=== PATIENT | female | born 1940 | race Caucasian/White ===

== ENCOUNTER 2023-04-13 16:12 | Emergency (ER) | payer MEDICARE, SELFPAY ==
--- NOTE | ~2023-04-13 | CT_ITS ---
EXAMINATION: CT ABDOMEN AND PELVIS WITH CONTRAST CLINICAL INFORMATION: Epigastric pain. COMPARISON: None available. TECHNIQUE: Multidetector volumetric images were obtained from the superior aspect of the liver through the pubic symphysis following administration 85 mL of Omnipaque 350 intravenous contrast. Sagittal and coronal reformatted images were obtained on the technologist's workstation. Oral contrast: No This CT examination was performed using dose optimization techniques as appropriate, variously including the following: *Automated exposure control *Adjustment of mA and/or kV according to patient size (this includes techniques or standardized protocols for targeted exams where dose is matched to indication/reason for exam; i.e. extremities or head) *Use of iterative reconstruction technique DLP: 541 mGy-cm FINDINGS: LUNG BASES: No focal consolidation or pleural effusion. LIVER, GALLBLADDER, AND BILIARY TREE: The liver is normal in size, shape, and attenuation. Too small to characterize hypodensity in the hepatic dome, statistically favoring to represent a cyst (3:4). Cholecystectomy. Dilated common bile duct measuring up to 1 cm in diameter that is most likely related with post cholecystectomy state and patient's age. No significant intrahepatic biliary ductal dilatation. PANCREAS: Unremarkable. SPLEEN: Unremarkable. ADRENAL GLANDS: Unremarkable. KIDNEYS AND URETERS: Symmetric nephrograms. No hydronephrosis. No perinephric fat stranding. Evaluation of renal calculi is limited due to small amount of intravenous contrast opacifying the renal calyces/collecting systems. There is 4.4 cm Bosniak 1 cortical cyst in the left upper kidney and multiple bilateral peripelvic renal cysts, for which no imaging follow-up is recommended. Additional too small to characterize bilateral cortical hypodensities, also statistically favoring to represent simple cysts for which no imaging follow-up is recommended. BLADDER: Unremarkable. GASTROINTESTINAL TRACT: Dilated hyperemic loops of small bowel in the mid to lower abdomen measuring up to 3 cm in diameter with air-fluid levels and associated mesentery vasculature engorgement, gradually transitioning into a lesser luminal diameter at the level of the distal ileum, for example as identified on axial image 58 series 3. Normal appearance of the terminal ileum and appendix. Fluid distention of the cecum and ascending colon with mild hyperemia and minimal wall thickening. Also fluid distention of the rectum. Colonic diverticulosis. No significant pericolonic fat stranding. No pneumatosis or free air. No organized extraluminal collections. ABDOMINAL WALL: No significant hernia is appreciated. LYMPH NODES: No lymphadenopathy. VASCULAR: Severe atherosclerotic disease. Normal caliber of the abdominal aorta. PELVIC VISCERA: Hysterectomy. OSSEOUS STRUCTURES: Moderate to severe degenerative changes of the spine. No acute or aggressive appearing osseous findings. Partially imaged left femoral hardware. CT/CT abdomen pelvis w IV con IMPRESSION: Prominent loops of small bowel in the mid to lower abdomen with associated hyperemia and mesenteric vasculature engorgement/haziness that could represent an early partial small bowel obstruction. However, there is also fluid distention of the cecum, ascending colon and rectum with mild hyperemia raising the possibility of acute enteritis with diarrhea. Recommend clinical correlation.
[2023-04-13 17:23] VITALS: BP 181/78; PULSE 88; RESP 16; TEMP 36.6; O2SAT 93; BMI 30.3
--- NOTE | 2023-04-13 17:25 | ED_ITS ---
HPI - General Adult General Chief complaint: Abdominal Pain Stated complaint: abd pain Time Seen by Provider: 04/13/23 22:40 Source: patient and family Mode of arrival: ambulatory Limitations: no limitations History of Present Illness HPI narrative: Patient comes to the emergency room complaining of vomiting and diarrhea and epigastric pain starting today. Patient comes accompanied by her daughter. Yesterday patient was doing well. Patient denies any fever chills, no flank pain, no UTI symptoms. Patient complaining of a headache and photophobia. Related Data Previous Rx's Medication Instructions Recorded loperamide 2 mg capsule 2 mg PO Q6H PRN loose stool #14 04/14/23 caps Allergies Allergy/AdvReac Type Severity Reaction Status Date / Time No Known Allergies Allergy Verified 04/13/23 17:23 Review of Systems 2 Review of Systems: Constitutional : No Weight loss, No Fever, No Chills, No Night Sweats, No Fatigue, No Malaise ENT/Mouth : No Hearing loss, No Ear Pain, No Nasal Congestion, No Sinus Pain, No Hoarseness, No sore throat, No Rhinorrhea, No Swallowing Difficulty Eyes: No Eye Pain, No Swelling, No Redness, No Foreign Body, No Discharge, No Vision Changes Cardiovascular : No Chest Pain, No SOB, No Dyspnea on Exertion, No Orthopnea, No Edema, No Palpitations Respiratory : No Cough, No Sputum, No Wheezing, No Smoke Exposure, No Dyspnea Gastrointestinal : Complaining of nausea and vomiting, diarrhea, epigastric pain Genitourinary : no irregular bleeding, No Dysuria, No Urinary Frequency, No Hematuria, No Urinary Incontinence, No Urgency, No Flank Pain, No Urinary Flow Changes, No Hesitancy Musculoskeletal : No joint pain, No Myalgias, No Joint Swelling Skin : No Skin Lesions, No rash Neuro : No Weakness, No Numbness, No Paresthesias, No Loss of Consciousness, No Dizziness, complaining of Headache Psych : No Anxiety/Panic, No Depression, No SI/HI/AH/VH, No Social Issues, Heme/Lymph: No Bruising, No Bleeding,No Lymphadenopathy Endocrine : No Polyuria, No Polydipsia, No Temperature Intolerance [facility] Past Medical History Surgical History (Updated 04/13/23 @ 22:56 by Shu Nuñez MD) H/O: History of cholecystectomy Social History Social History Alcohol intake: never Smoked in Last 30 Days: No Use of substances other than those prescribed or required for medical reasons: No Advance Directives: No Advance Directives Information Provided: No Physical Exam ED Vital Signs: Vital Signs - 24 hr 04/13/23 17:23 04/13/23 22:23 Temperature 97.8 F 98.0 F Pulse Rate 88 84 Respiratory Rate 16 18 Blood Pressure 181/78 H 168/78 H Pulse Oximetry 93 97 Oxygen Delivery Method Room Air Room Air BMI result Body Mass Index 30.3 Const Other: Appearance: Alert. Oriented X3. No acute distress. Eyes: Pupils equal, round and reactive to light. Patient seems to have photophobia ENT: Pharynx normal. Neck: Normal inspection. Neck supple. No lymph nodes noted. No crepitus CVS: Normal heart rate and rhythm. Pulses normal. Normal S1 and S2 Respiratory: No respiratory distress. Breath sounds normal. No Wheezing. No rales Abdomen: Soft, abdominal discomfort in bilateral upper quadrants, no rebound, no guarding, No rigidity. No distention. Skin: Skin warm and dry. Normal skin color. Normal skin turgor. Extremities: No lower extremity edema. No Lacerations. No Rash Neuro: Oriented X 3. No motor deficit. No sensory deficit. Moving all extremities. No slurred speech. CN 2 through 12 grossly intact Psych: calm, cooperative, normal affect Course Course Course Narrative: This is a rapid medical exam: Additional HPI, ROS, PE not included below will be deferred to primary provider. Patient is an 82-year-old female with history of HTN, recent femoral fracture with surgical repair, diet controlled CM presenting to the ED with epigastric pain and diarrhea for one day. Had similar symptoms recently which resolved spontaneously. Denies fevers. Denies recent antibiotic use. Plan: viral swabs, labs, UA, EKG Medications Administered Discontinued Medications Generic Name Dose Route Start Last Admin Trade Name Freq PRN Reason Stop Dose Admin Sodium Chloride 1,000 mls @ 999 mls/hr 04/13/23 22:51 04/13/23 23:51 Ns IVCONT 04/13/23 23:51 999 mls/hr .Q1H1M ONE Administration Iohexol 85 ml 04/13/23 23:35 04/13/23 23:36 Iohexol 350 Mg/Ml 100 Ml Infus..Btl IV 04/13/23 23:36 85 ml ONCE ONE Administration Ketorolac Tromethamine 30 mg 04/13/23 23:01 04/13/23 23:50 Ketorolac Tromethamine 30 Mg/Ml Vial IVPUSH 04/13/23 23:02 30 mg ONCE ONE Administration Loperamide HCl 4 mg 04/13/23 22:51 04/13/23 23:49 Loperamide Hcl 2 Mg Capsule PO 04/13/23 22:52 4 mg ONCE ONE Administration Ondansetron HCl 4 mg 04/13/23 22:51 04/13/23 23:51 Ondansetron Hcl 4 Mg/2 Ml Vial IVPUSH 04/13/23 22:52 4 mg ONCE ONE Administration Medical Decision Making Medical Decision Making [facility] Narrative: -my interpretation of labs, white blood cell count slightly elevated 11.7, chemistry unremarkable, LFTs within normal limits, urinalysis has small amount of blood, negative for UTI, patient has no UTIs symptoms -patient receiving IV fluids, Zofran, loperamide and also Toradol for the headache. -my interpretation of CT scan of the abdomen : No obvious abnormalities, no SBO -radiology report shows prominent loops, possible SpO2. However, patient has no SBO symptoms. Patient actually has diarrhea. After the IV fluids and treatment mentioned above, patient states that she feels much better, has no abdominal pain whatsoever. -her chest pain to keep drinking fluids -likely viral gastroenteritis, this time, antibiotics not indicated Differential Diagnosis Differential Diagnoses: The differential diagnosis associated with the presentation includes (Viral gastroenteritis, SBO, viral syndrome) Admission/Observation Consideration of admission/observation: Escalation of care including admission/observation considered (Given patient's symptoms and presentation, admission was considered on arrival) Lab Data [facility] Lab Attestation statement: I reviewed the patient's lab results. 04/13/23 18:06 04/13/23 18:06 Labs: Lab Results 04/13/23 04/13/23 Range/Units 18:06 21:37 WBC 11.7 H (4.8-10.8) X10*3/uL RBC 4.86 (4.20-5.50) X10*6/uL Hgb 15.5 (12.0-16.0) g/dl Hct 46.7 (37.0-47.0) % MCV 96.1 (80.0-98.0) fL MCH 31.9 (27.0-33.0) pg MCHC 33.2 (31.0-35.0) g/dl RDW 13.1 (11.0-16.0) % Plt Count 277 (160-400) X10*3/uL MPV 8.5 L (9.4-12.3) fL Immature Gran % (Auto) 0.3 (0.0-0.4) % Neut % (Auto) 91.2 H (45-73) % Lymph % (Auto) 3.9 L (20-40) % [place] % (Auto) 3.5 (2-11) % Eos % (Auto) 0.9 (0-4) % Baso % (Auto) 0.2 (0-2) % Lymph # (Auto) 0.5 L (1.2-4.9) X10*3/uL [place] # (Auto) 0.4 (0.1-1.2) X10*3/uL Eos # (Auto) 0.1 (0.0-0.4) X10*3/uL Baso # (Auto) 0.0 (0.0-0.2) X10*3/uL Abs Immat Gran (auto) 0.04 H (0.00-0.03) X10*3/uL Absolute Neuts (auto) 10.7 H (2.0-8.3) x10*3/uL Absolute Nucleated RBC 0.000 (0.0-0.012) X10*3/uL Nucleated RBC % (auto) 0.0 (0.0-0.2) /100WBC Smear Tech's Comments VERIFIED Sodium 141 (135-145) mmol/L Potassium 4.7 (3.3-5.1) mmol/L Chloride 106 (96-108) mmol/L Carbon Dioxide 27 (22-29) mmol/L Anion Gap 13 (12-20) BUN 13 (9-16) mg/dL Creatinine 0.76 (0.5-1.4) mg/dL Estim Creat Clear Calc 49.5 Estimated GFR > 60 Random Glucose 149 H (60-115) mg/dL Calcium 9.9 (8.4-10.2) mg/dL Total Bilirubin 0.4 (0.0-1.0) mg/dL AST 16 (5-31) U/L ALT 8 (0-31) U/L Alkaline Phosphatase 105 (39-117) U/L Troponin I High Sens 3.3 (<3.5-17.0) ng/L Total Protein 7.6 (6.5-8.0) g/dL Albumin 4.1 (3.5-5.0) g/dL Urine Color Dark Yellow Urine Appearance Cloudy Urine pH 5.5 (5.0-9.0) Ur Specific [place] >= 1.030 H (1.005-1.025) Urine Protein 30 (1+) H (Neg-Trace) mg/dL Urine Glucose (UA) Negative (Negative) mg/dL Urine Ketones Negative (Negative) mg/dL Urine Blood Trace H (Negative) Urine Nitrite Negative (Negative) Ur Leukocyte Esterase Negative (Negative) Urine RBC 6-10 H (0-2) /HPF Urine WBC 0-5 (0-5) /HPF Ur Squamous Epith Cells 6-10 (0-2) /HPF Urine Bacteria Trace (None Seen) Hyaline Casts 3-5 (0-2) /LPF COVID-19 (KATERINE) Negative (Negative) COVID-19 Clin Com See Note Influenza Type A (JUAN ANTONIO) Negative (Negative) Influenza Type B (JUAN ANTONIO) Negative (Negative) Influenza A & B Note See Note Independent Interpretation I performed an independent interpretation of an: CT Scan Radiology Impression Discussion of test interpretation with radiology: I have reviewed the radiologist's reading. Radiologist Impression: FINDINGS: LUNG BASES: No focal consolidation or pleural effusion. LIVER, GALLBLADDER, AND BILIARY TREE: The liver is normal in size, shape, and attenuation. Too small to characterize hypodensity in the hepatic dome, statistically favoring to represent a cyst (3:4). Cholecystectomy. Dilated common bile duct measuring up to 1 cm in diameter that is most likely related with post cholecystectomy state and patient's age. No significant intrahepatic biliary ductal dilatation. PANCREAS: Unremarkable. SPLEEN: Unremarkable. ADRENAL GLANDS: Unremarkable. KIDNEYS AND URETERS: Symmetric nephrograms. No hydronephrosis. No perinephric fat stranding. Evaluation of renal calculi is limited due to small amount of intravenous contrast opacifying the renal calyces/collecting systems. There is 4.4 cm Bosniak 1 cortical cyst in the left upper kidney and multiple bilateral peripelvic renal cysts, for which no imaging follow-up is recommended. Additional too small to characterize bilateral cortical hypodensities, also statistically favoring to represent simple cysts for which no imaging follow-up is recommended. BLADDER: Unremarkable. GASTROINTESTINAL TRACT: Dilated hyperemic loops of small bowel in the mid to lower abdomen measuring up to 3 cm in diameter with air-fluid levels and associated mesentery vasculature engorgement, gradually transitioning into a lesser luminal diameter at the level of the distal ileum, for example as identified on axial image 58 series 3. Normal appearance of the terminal ileum and appendix. Fluid distention of the cecum and ascending colon with mild hyperemia and minimal wall thickening. Also fluid distention of the rectum. Colonic diverticulosis. No significant pericolonic fat stranding. No pneumatosis or free air. No organized extraluminal collections. ABDOMINAL WALL: No significant hernia is appreciated. LYMPH NODES: No lymphadenopathy. VASCULAR: Severe atherosclerotic disease. Normal caliber of the abdominal aorta. PELVIC VISCERA: Hysterectomy. OSSEOUS STRUCTURES: Moderate to severe degenerative changes of the spine. No acute or aggressive appearing osseous findings. Partially imaged left femoral hardware. CT/CT abdomen pelvis w IV con IMPRESSION: Prominent loops of small bowel in the mid to lower abdomen with associated hyperemia and mesenteric vasculature engorgement/haziness that could represent an early partial small bowel obstruction. However, there is also fluid distention of the cecum, ascending colon and rectum with mild hyperemia raising the possibility of acute enteritis with diarrhea. Recommend clinical correlation. Critical Care Time Critical Care Time Critical Care Time: Yes Total Critical Care Time: 60 Attestation: I have personally provided critical care time. Time includes review of lab data, radiology results, discussion with consultants, and monitoring for potential decompensation. Intervention performed as documented. Discharge Plan Discharge Clinical Impression: Gastroenteritis Patient Disposition: Home, Self-Care Instructions: Gastroenteritis (ED) Additional Instructions: trate de comer shabbir y april muchos liquidos. Si no quiere comer por un lashell, esta shabbir, bettie muchos liquidos son necesarios. No deje pasar mucho tiempo sin comer para que no se debilite. tome liquidos con electrolitos rosalva gatorade, powerade, pedialite. Please follow-up with your primary care physician tomorrow. If you have any worsening or new symptoms, please return to the emergency room or call 911 Prescriptions: New loperamide 2 mg capsule 2 mg PO Q6H PRN (Reason: loose stool) Qty: 14 0RF
--- NOTE | 2023-04-13 17:28 | ECG_ITS ---
Test Reason : epigastric pain Blood Pressure : / mmHG Vent. Rate : 079 BPM Atrial Rate : 079 BPM P-R Int : 146 ms QRS Dur : 078 ms QT Int : 362 ms P-R-T Axes : 037 -23 002 degrees QTc Int : 415 ms Normal sinus rhythm Normal ECG No previous ECGs available Referred By: My Aguilar Electronically Signed By:KAROLYN RUSH
[2023-04-13 18:12] LABS: Basophils Percent Auto 0.2 % (0-2); Eosinophils Absolute Auto 0.1 X10*3/uL (0.0-0.4); Eosinophils Percent Auto 0.9 % (0-4); Hematocrit 46.7 % (37.0-47.0); Hemoglobin 15.5 g/dl (12.0-16.0); Imm Gran Abs Auto 0.04 X10*3/uL (0.00-0.03); Imm Gran Pct Auto 0.3 % (0.0-0.4); Lymphocytes Absolute Auto 0.5 X10*3/uL (1.2-4.9); Lymphocytes Percent Auto 3.9 % (20-40); MANUAL DIFF FLAG SCAN; Mean Corpuscular HGB Conc 33.2 g/dl (31.0-35.0); Mean Corpuscular Hemoglobin 31.9 pg (27.0-33.0); Mean Corpuscular Volume 96.1 fL (80.0-98.0); Mean Platelet Volume 8.5 fL (9.4-12.3); Monocytes Absolute Auto 0.4 X10*3/uL (0.1-1.2); Monocytes Percent Auto 3.5 % (2-11); Neutrophils Absolute Auto 10.7 x10*3/uL (2.0-8.3); Neutrophils Percent Auto 91.2 % (45-73); Platelet Count 277 X10*3/uL (160-400); Red Blood Count 4.86 X10*6/uL (4.20-5.50); Red Cell Distribution Width 13.1 % (11.0-16.0); SCAN SMEAR FLAG 1; White Blood Count 11.7 X10*3/uL (4.8-10.8)
[2023-04-13 18:25] LABS: Alanine Aminotransferase 8 U/L (0-31); Albumin Level 4.1 g/dL (3.5-5.0); Alkaline Phosphatase 105 U/L (39-117); Anion Gap 13 (12-20); Aspartate Amino Transferase 16 U/L (5-31); Bilirubin Total 0.4 mg/dL (0.0-1.0); Blood Urea Nitrogen 13 mg/dL (9-16); Calcium 9.9 mg/dL (8.4-10.2); Carbon Dioxide 27 mmol/L (22-29); Chloride 106 mmol/L (96-108); Creatinine Clr Calc Pharmacy 49.5; Estimated Glomerular Filt Rate > 60; Glucose Random 149 mg/dL (60-115); Potassium 4.7 mmol/L (3.3-5.1); Sodium 141 mmol/L (135-145); Total Protein 7.6 g/dL (6.5-8.0)
[2023-04-13 18:32] LABS: Troponin-I High Sensitivity 3.3 ng/L (<3.5-17.0)
[2023-04-13 18:41] LABS: COVID-19 Test Negative (Negative); IDNOW Serial# 08D9AD1C; IDNOW Serial# BCCEAD1C; Influenza A Negative (Negative); Influenza B2 Negative (Negative)
[2023-04-13 18:48] LABS: SLIDE REVIEW VERIFIED
[2023-04-13 21:49] LABS: Appearance Urine Cloudy; Color Urine Dark Yellow; Glucose Urine UA Negative (Negative); Leukocyte Esterase Urine Negative (Negative); Nitrite Urine Negative (Negative); PH 5.5 (5.0-9.0); Specific Gravity - Urine >= 1.030 (1.005-1.025); UMIC TRIGGER UACC YES; Urine Blood Trace (Negative); Urine Ketones Negative (Negative); Urine Protein 30 (1+) mg/dL (Neg-Trace)
[2023-04-13 21:56] LABS: Bacteria Urine Trace (None Seen); WBC Urine 0-5 /HPF (0-5)
[2023-04-13 22:23] VITALS: BP 168/78; PULSE 84; RESP 18; TEMP 36.7; O2SAT 97
--- NOTE | 2023-04-13 22:38 | PC.NURSE ---
Pt c/o abdominal pain multiple diarrhea episodes and vomiting bile per reports from daughter who also reports she had the same symptoms a couple of days ago. Pt also reporting having had a headache that recently started 06/23.
[2023-04-13] MEDS: iohexoL 350 MG/ML 100 ML INFUS..BTL 85 ML IV (23:36)
[2023-04-13] MEDS: Loperamide HCl 2 MG CAPSULE 4 MG PO (23:49)
[2023-04-13] MEDS: Ketorolac Tromethamine 30 MG/ML VIAL IVPUSH (23:50)
[2023-04-13] MEDS: ondansetron HCL 4 MG/2 ML VIAL IVPUSH (23:51)
[2023-04-13] MEDS: 0.9 % Sodium Chloride 1,000 ML 999 ML IVCONT (23:51)
--- NOTE | 2023-04-13 23:57 | PC.NURSE ---
Pt ca&ox4, no signs of distress. Pts daughter at bedside. Pt medicated per jun. Pt reports 10/23 abdm pain. Plan of care ongoing.
[2023-04-14 01:52] VITALS: BP 144/58; PULSE 89; RESP 14; O2SAT 100
== END 2023-04-14 01:54 | disposition home or self-care (01) ==
PROVIDERS: Registered Nurse Emergency; Emergency Provider Emergency Medicine
DX: K52.9 Noninfective gastroenteritis and colitis, unspecified (principal); R10.13 Epigastric pain; R11.10 Vomiting, unspecified; Z11.52 Encounter for screening for COVID-19
CPT/HCPCS: 74177; 80053; 81001; 84484; 85025; 87502; 87635; 93005; 96374; 96375; 99284; 99285; J1885; J2405; Q9967

== ENCOUNTER → 2023-04-13 17:28 | Outpatient (BNV) | payer MEDICARE, SELFPAY | PROVIDERS: Emergency Provider Emergency Medicine; Visit Provider Internal Medicine | DX: R10.13 Epigastric pain (principal) | CPT/HCPCS: 93010 ==